=== PATIENT | male | born 1975 | race African-American/Black ===

== ENCOUNTER 2020-10-15 09:25 | Emergency (ER) | payer MEDICARE, MEDICAID ==
[~2020-10-15] VITALS: Ht 182.9 cm; Wt 137.0 kg
[2020-10-15 09:28] VITALS: BP 181/121
== END 2020-10-15 11:32 | disposition left against medical advice (07) ==
LOC: ER 09:25
DX: Z53.21 Procedure and treatment not carried out due to patient leaving prior to being seen by health care provider (principal)

== ENCOUNTER 2021-01-17 15:03 | Emergency (ER) | payer MEDICARE, MEDICAID ==
[~2021-01-17] VITALS: Ht 185.4 cm; Wt 150.0 kg
[2021-01-17 17:22] LABS: BASOPHILS % 0.4 % (0.0-2.0); EOSINOPHILS % 3.2 % (0.0-5.0); HEMATOCRIT. 36.6 % (42.0-52.0); HEMOGLOBIN. 11.7 g/dL (14.0-18.0); LYMPHOCYTES % 20.8 % (20.0-50.0); MEAN CORPUSCULAR HEMOGLOBIN 27.7 pg (28.0-32.0); MEAN CORPUSCULAR VOLUME 86.7 fL (80.0-94.0); MEAN PLATELET VOLUME 10.3 fl (7.4-10.4); MONOCYTES % 8.4 % (2.0-8.0); NEUTROPHILS % 67.2 % (40.0-76.0); PLATELET 89 x1000/uL (130-400); RED BLOOD CELL COUNT 4.22 mill/uL (4.7-6.1); RED CELL DISTRIBUTION WIDTH 15.2 % (11.6-14.6)
[2021-01-17 17:28] LABS: CHLORIDE 112 mEq/L (98-107)
[2021-01-17 17:32] LABS: INR 1.1; PARTIAL THROMBOPLASTIN TIME 23.1 sec (23.4-31.0); PROTHROMBIN TIME 11.4 sec (9.6-11.0)
[2021-01-17 19:30] VITALS: BP 155/108
== END 2021-01-17 19:30 | disposition left against medical advice (07) ==
LOC: ER 15:03 → EDBEDREQ 19:38 → ENRESERV 20:19 → CANRESERV 20:19 → CANBEDREQ 20:24
DX: T82.49XA Other complication of vascular dialysis catheter, initial encounter (principal); E11.22 Type 2 diabetes mellitus with diabetic chronic kidney disease; N18.6 End stage renal disease; F12.10 Cannabis abuse, uncomplicated; Z99.2 Dependence on renal dialysis; Y84.1 Kidney dialysis as the cause of abnormal reaction of the patient, or of later complication, without mention of misadventure at the time of the procedure; Y92.018 Other place in single-family (private) house as the place of occurrence of the external cause
CPT/HCPCS: 36415; 71045; 80053; 85025; 99284

== ENCOUNTER 2022-01-01 12:12 | Inpatient (IN) | payer MEDICARE, MEDICAID ==
[~2022-01-01] VITALS: Ht 182.9 cm; Wt 144.2 kg
[2022-01-01] MEDS ORDERED: FUROSEMIDE 100MG/10ML VIAL IVP ONE ×2 (13:15→14:15)
[2022-01-01 13:29] LABS: BG BASE EXCESS -3.6 mmol/L (-2.0-2.0); BG CARBOXYHEMOGLOBIN 0.7 % (0.5-1.5); BG DEOXYHEMOGLOBIN 6.8 % (0.0-5.0); BG METHEMOGLOBIN 0.3 % (0.0-1.5); BG OXYGEN SATURATION 93.1 % (92.0-98.5); BG OXYHEMOGLOBIN 92.2 % (94.0-97.0); BG PCO2 24.1 mmHg (35.0-45.0); BG PO2 63.5 mmHg (75.0-100.0); BG SAMPLE SITE RIGHT RADIAL; BG TOTAL HEMOGLOBIN 13.4 g/dL (12.0-18.0); BG VENT MODE ROOM AIR
[2022-01-01] MEDS ORDERED: NITROGLYCERIN 0.4MG TABLET SL SL ONE (14:15)
[2022-01-01 14:26] LABS: HEMATOCRIT. 39.1 % (42.0-52.0); HEMOGLOBIN. 12.8 g/dL (14.0-18.0); MEAN CORPUSCULAR HEMOGLOBIN 26.4 pg (28.0-32.0); MEAN CORPUSCULAR VOLUME 80.4 fL (80.0-94.0); RED BLOOD CELL COUNT 4.86 mill/uL (4.7-6.1); RED CELL DISTRIBUTION WIDTH 15.7 % (11.6-14.6)
[2022-01-01 14:36] LABS: CHLORIDE 97 mEq/L (98-107)
[2022-01-01 15:00] LABS: PLATELET ESTIMATE DECREASED
[2022-01-01 15:01] LABS: MEAN PLATELET VOLUME 12.8 fl (7.4-10.4); PLATELET 51 x1000/uL (130-400)
[2022-01-01] MEDS ORDERED: CEFTRIAXONE 1 G PREMIX 50 ML IV ONE (20:30)
[2022-01-01] MEDS ORDERED: NITROGLYCERIN 50MG PREMIX 250 ML IV ONE ×2 (20:30→20:45)
[2022-01-01] MEDS ORDERED: LORAZEPAM 2MG/ML CPJ IV ONE (21:45)
[2022-01-01 23:10] LABS: BG BASE EXCESS -5.6 mmol/L (-2.0-2.0); BG CARBOXYHEMOGLOBIN 0.4 % (0.5-1.5); BG DEOXYHEMOGLOBIN 0.9 % (0.0-5.0); BG FRACTION INSPIRED OXYGEN 50; BG HCO3 ACT 18.1 mmol/L (22.0-26.0); BG METHEMOGLOBIN 0.3 % (0.0-1.5); BG OXYGEN SATURATION 99.1 % (92.0-98.5); BG OXYHEMOGLOBIN 98.4 % (94.0-97.0); BG PCO2 30.2 mmHg (35.0-45.0); BG PH 7.395 (7.350-7.450); BG SAMPLE SITE LEFT RADIAL; BG TOTAL HEMOGLOBIN 13.5 g/dL (12.0-18.0); BG VENT MODE MASK - BIPAP
[2022-01-02] VITALS (80 sets, daily range): BP systolic 87–170; BP diastolic 45–123
[2022-01-02] MEDS ORDERED: MORPHINE SULFATE 2 MG/ML CPJ (NOT FOR IM USE) IV PRN (05:00)
[2022-01-02] MEDS ORDERED: IPRATROPIUM/ALBUTEROL 0.5-3(2.5)MG/3ML NEB HHN PRN (05:00)
[2022-01-02] MEDS ORDERED: CLONIDINE 0.1MG TABLET PO PRN (05:00)
[2022-01-02] MEDS ORDERED: NITROGLYCERIN 50MG PREMIX 250 ML IV PRN (05:15)
[2022-01-02] MEDS ORDERED: NALOXONE HCL 0.4 MG/ML 1ML VIAL IV PRN (05:45)
[2022-01-02] MEDS ORDERED: DEXTROSE 50% WATER 50ML SYRINGE IV PRN (05:45)
[2022-01-02] MEDS ORDERED: HEPARIN 5000 UNITS/ML VIAL SUBCUT SCH (06:00)
[2022-01-02] MEDS: ACETAMINOPHEN 325MG TABLET PO PRN (06:02)
[2022-01-02 06:53] LABS: HEMATOCRIT. 38.7 % (42.0-52.0); HEMOGLOBIN. 12.7 g/dL (14.0-18.0); MEAN CORPUSCULAR HEMOGLOBIN 26.6 pg (28.0-32.0); MEAN CORPUSCULAR VOLUME 80.9 fL (80.0-94.0); RED BLOOD CELL COUNT 4.78 mill/uL (4.7-6.1); RED CELL DISTRIBUTION WIDTH 16.6 % (11.6-14.6)
[2022-01-02 07:03] LABS: INR 1.1; PARTIAL THROMBOPLASTIN TIME 32.4 sec (23.4-31.0); PROTHROMBIN TIME 11.5 sec (9.6-11.0)
[2022-01-02 07:04] LABS: PHOSPHORUS 4.4 mg/dL (2.5-4.9)
[2022-01-02 07:04] LABS: CREATINE KINASE MB FRACTION 4.9 ng/mL (0.5-3.6)
[2022-01-02 07:29] LABS: MEAN PLATELET VOLUME 16.1 fl (7.4-10.4); PLATELET 49 x1000/uL (130-400)
[2022-01-02 07:39] LABS: PLATELET ESTIMATE MARKEDLY DECREASED
[2022-01-02] MEDS ORDERED: ALTEPLASE 2MG/VIAL ITC NR (07:39)
[2022-01-02] MEDS ORDERED: VANCOMYCIN 1500MG in DEXTROSE 5% WATER 250ML IV SCH (08:00)
[2022-01-02] MEDS: INSULIN LISPRO 100 UNITS/ML SUBCUT SCH ×4 (08:20→21:00)
[2022-01-02] MEDS: BLOOD SUGAR DIAGNOSTIC STRIP TEST SCH ×4 (08:22→21:00)
[2022-01-02] MEDS: PIPERACILLIN/TAZOBACTAM 3.375 G in DEXTROSE 5% WATER 50 ML IV SCH ×2 (08:30→22:23)
[2022-01-02] MEDS ORDERED: LIDOCAINE HCL/PF 1% 10 MG/ML 5ML VIAL ONE (08:49)
[2022-01-02] MEDS ORDERED: HEPARIN 1000 UNITS/ML 10ML ONE (09:02)
[2022-01-02 09:55] LABS: BG BASE EXCESS -4.7 mmol/L (-2.0-2.0); BG CARBOXYHEMOGLOBIN 0.3 % (0.5-1.5); BG DEOXYHEMOGLOBIN 0.9 % (0.0-5.0); BG FRACTION INSPIRED OXYGEN 50; BG HCO3 ACT 19.9 mmol/L (22.0-26.0); BG METHEMOGLOBIN 0.1 % (0.0-1.5); BG OXYGEN SATURATION 99.1 % (92.0-98.5); BG OXYHEMOGLOBIN 98.7 % (94.0-97.0); BG PCO2 35.5 mmHg (35.0-45.0); BG PH 7.367 (7.350-7.450); BG PO2 181.2 mmHg (75.0-100.0); BG SAMPLE SITE LEFT RADIAL; BG TOTAL HEMOGLOBIN 12.5 g/dL (12.0-18.0); BG TOTAL RESPIRATORY RATE 30 b/min; BG VENT MODE MASK - BIPAP
[2022-01-02] MEDS ORDERED: HYDROCODONE/ACETAMINOPHEN 5/325MG TABLET PO PRN (11:30)
[2022-01-02] MEDS ORDERED: MAGNESIUM/ALUMINUM HYDROXIDE/SIMETHICONE 30ML UDC PO PRN (11:30)
[2022-01-02] MEDS ORDERED: ONDANSETRON HCL 4MG/2ML INJ IV PRN (11:30)
[2022-01-02] MEDS ORDERED: DOCUSATE SODIUM 100MG CAPSULE PO PRN (11:30)
[2022-01-02] MEDS ORDERED: PIPERACILLIN/TAZOBACTAM 3.375 G in DEXTROSE 5% WATER 50 ML IV SCH (11:30)
[2022-01-02 13:08] LABS: HEPATITIS B SURFACE ANTIGEN NEGATIVE
[2022-01-02 13:19] LABS: CREATINE KINASE 310 IU/L (39-308)
[2022-01-02 16:05] LABS: CREATINE KINASE MB FRACTION 3.8 ng/mL (0.5-3.6)
[2022-01-02] MEDS ORDERED: VANCOMYCIN 500MG PREMIX 100 ML IV NR (21:00)
[2022-01-02] MEDS: ATORVASTATIN CALCIUM 40MG TABLET PO SCH (22:22)
[2022-01-02] MEDS: CARVEDILOL 6.25 MG TABLET PO SCH (22:23)
[2022-01-03] VITALS (84 sets, daily range): BP systolic 80–166; BP diastolic 31–114
[2022-01-03 00:20] LABS: CREATINE KINASE MB FRACTION 3.6 ng/mL (0.5-3.6)
[2022-01-03 07:00] LABS: BASOPHILS % 0.2 % (0.0-2.0); EOSINOPHILS % 0.1 % (0.0-5.0); HEMATOCRIT. 36.2 % (42.0-52.0); MEAN CORPUSCULAR HEMOGLOBIN 26.7 pg (28.0-32.0); MEAN CORPUSCULAR VOLUME 80.7 fL (80.0-94.0); MEAN PLATELET VOLUME 11.6 fl (7.4-10.4); NEUTROPHILS % 79.7 % (40.0-76.0); RED BLOOD CELL COUNT 4.48 mill/uL (4.7-6.1); RED CELL DISTRIBUTION WIDTH 16.1 % (11.6-14.6)
[2022-01-03 07:18] LABS: PLATELET 26 x1000/uL (130-400)
[2022-01-03 07:24] LABS: PHOSPHORUS 4.7 mg/dL (2.5-4.9); T4 FREE 1.56 ng/dL (0.76-1.46)
[2022-01-03 07:39] LABS: CREATINE KINASE MB FRACTION 3.2 ng/mL (0.5-3.6)
[2022-01-03] MEDS: BLOOD SUGAR DIAGNOSTIC STRIP TEST SCH ×4 (07:50→21:00)
[2022-01-03] MEDS: INSULIN LISPRO 100 UNITS/ML SUBCUT SCH ×4 (08:20→21:00)
[2022-01-03] MEDS: LOSARTAN POTASSIUM 25 MG TABLET PO SCH (09:03)
[2022-01-03] MEDS: PANTOPRAZOLE SODIUM 40 MG/VIAL IV SCH (09:03)
[2022-01-03] MEDS: CARVEDILOL 6.25 MG TABLET PO SCH ×2 (09:03→21:47)
[2022-01-03 09:28] LABS: BG BASE EXCESS -2.3 mmol/L (-2.0-2.0); BG CARBOXYHEMOGLOBIN 1.1 % (0.5-1.5); BG DEOXYHEMOGLOBIN 2.2 % (0.0-5.0); BG FRACTION INSPIRED OXYGEN 32; BG HCO3 ACT 22.5 mmol/L (22.0-26.0); BG METHEMOGLOBIN 0.1 % (0.0-1.5); BG OXYGEN SATURATION 97.8 % (92.0-98.5); BG OXYHEMOGLOBIN 96.6 % (94.0-97.0); BG PCO2 38.8 mmHg (35.0-45.0); BG PH 7.381 (7.350-7.450); BG PO2 103.9 mmHg (75.0-100.0); BG SAMPLE SITE RIGHT RADIAL; BG TOTAL HEMOGLOBIN 13.6 g/dL (12.0-18.0); BG VENT MODE NASAL CANNULA
[2022-01-03] MEDS: PIPERACILLIN/TAZOBACTAM 3.375 G in DEXTROSE 5% WATER 50 ML IV SCH ×2 (11:10→21:48)
[2022-01-03 16:04] LABS: CLARITY URINE CLEAR (CLEAR); COLOR URINE YELLOW (YELLOW); KETONES URINE NEGATIVE (NEGATIVE); LEUKOCYTE ESTERASE URINE NEGATIVE (NEGATIVE); NITRITE URINE NEGATIVE (NEGATIVE); OCCULT BLOOD URINE NEGATIVE (NEGATIVE); PH URINE >=9.0 (4.5-8.0); PROTEIN URINE NEGATIVE (NEGATIVE); SPECIFIC GRAVITY URINE 1.006 (1.005-1.030); UROBILINOGEN URINE 0.2 E.U./dL (0.2-1.0)
[2022-01-03 16:22] LABS: *BARBITURATES SCREEN URINE NEGATIVE (NEGATIVE); *BENZODIAZEPINES SCREEN URINE NEGATIVE (NEGATIVE); *COCAINE SCREEN URINE NEGATIVE (NEGATIVE); METHADONE URINE SCREEN NEGATIVE (NEGATIVE); OPIATES URINE SCREEN NEGATIVE (NEGATIVE); PHENCYCLIDINE URINE SCREEN NEGATIVE (NEGATIVE)
[2022-01-03 16:23] LABS: *AMPHETAMINES SCREEN URINE NEGATIVE (NEGATIVE); CANNABINOID URINE SCREEN NEGATIVE (NEGATIVE)
[2022-01-03 16:53] LABS: CREATINE KINASE MB FRACTION 2.9 ng/mL (0.5-3.6)
[2022-01-03] MEDS: ATORVASTATIN CALCIUM 40MG TABLET PO SCH (21:48)
[2022-01-04] VITALS (62 sets, daily range): BP systolic 81–151; BP diastolic 44–91
[2022-01-04 06:27] LABS: BASOPHILS % 0.5 % (0.0-2.0); EOSINOPHILS % 0.2 % (0.0-5.0); HEMATOCRIT. 35.3 % (42.0-52.0); HEMOGLOBIN. 11.5 g/dL (14.0-18.0); LYMPHOCYTES % 17.5 % (20.0-50.0); MEAN CORPUSCULAR HEMOGLOBIN 26.5 pg (28.0-32.0); MEAN CORPUSCULAR VOLUME 81.3 fL (80.0-94.0); MONOCYTES % 12.1 % (2.0-8.0); NEUTROPHILS % 69.7 % (40.0-76.0); RED BLOOD CELL COUNT 4.34 mill/uL (4.7-6.1); RED CELL DISTRIBUTION WIDTH 16.1 % (11.6-14.6)
[2022-01-04 07:27] LABS: PLATELET 53 x1000/uL (130-400)
[2022-01-04] MEDS: BLOOD SUGAR DIAGNOSTIC STRIP TEST SCH ×4 (07:50→21:21)
[2022-01-04] MEDS: INSULIN LISPRO 100 UNITS/ML SUBCUT SCH ×4 (08:20→21:00)
[2022-01-04] MEDS: PANTOPRAZOLE SODIUM 40 MG/VIAL IV SCH (09:04)
[2022-01-04] MEDS: CARVEDILOL 6.25 MG TABLET PO SCH (09:04)
[2022-01-04] MEDS: PIPERACILLIN/TAZOBACTAM 3.375 G in DEXTROSE 5% WATER 50 ML IV SCH (09:04)
[2022-01-04] MEDS: LOSARTAN POTASSIUM 25 MG TABLET PO SCH (09:04)
[2022-01-04] MEDS ORDERED: LIDOCAINE HCL/PF 1% 10 MG/ML 5ML VIAL ONE (10:11)
[2022-01-04] MEDS ORDERED: VANCOMYCIN 1G PREMIX 200 ML IV NR (15:00)
[2022-01-04] MEDS: ATORVASTATIN CALCIUM 40MG TABLET PO SCH (21:17)
[2022-01-04] MEDS: METRONIDAZOLE 500MG TABLET PO SCH (21:17)
[2022-01-04] MEDS: CARVEDILOL 12.5MG TABLET PO SCH (21:17)
[2022-01-04] MEDS: ACETAMINOPHEN 325MG TABLET PO PRN ×3 (21:18→23:22)
[2022-01-04] MEDS: CEFEPIME 1,000 MG in DEXTROSE 5% WATER 50 ML IV SCH (21:19)
[2022-01-05 05:12] VITALS: BP 128/92
[2022-01-05] MEDS: BLOOD SUGAR DIAGNOSTIC STRIP TEST SCH ×4 (06:00→21:10)
[2022-01-05] MEDS: INSULIN LISPRO 100 UNITS/ML SUBCUT SCH ×4 (06:23→21:00)
[2022-01-05] MEDS: METRONIDAZOLE 500MG TABLET PO SCH ×3 (06:24→22:28)
[2022-01-05 08:00] VITALS: BP 135/70
[2022-01-05 09:25] LABS: PHOSPHORUS 3.6 mg/dL (2.5-4.9)
[2022-01-05] MEDS: PANTOPRAZOLE SODIUM 40 MG/VIAL IV SCH (09:51)
[2022-01-05 12:00] VITALS: BP 154/97
[2022-01-05] MEDS: CARVEDILOL 12.5MG TABLET PO SCH ×2 (13:12→22:29)
[2022-01-05 20:00] VITALS: BP 126/86
[2022-01-05] MEDS: ATORVASTATIN CALCIUM 40MG TABLET PO SCH (22:25)
[2022-01-05] MEDS: LOSARTAN POTASSIUM 50 MG TABLET PO SCH (22:25)
[2022-01-05] MEDS: CEFEPIME 1,000 MG in DEXTROSE 5% WATER 50 ML IV SCH (22:55)
[2022-01-06] VITALS: BP 117/63
[2022-01-06 04:00] VITALS: BP 124/74
[2022-01-06] MEDS: INSULIN LISPRO 100 UNITS/ML SUBCUT SCH ×4 (05:37→21:00)
[2022-01-06] MEDS: BLOOD SUGAR DIAGNOSTIC STRIP TEST SCH ×4 (05:37→20:50)
[2022-01-06] MEDS: METRONIDAZOLE 500MG TABLET PO SCH ×3 (05:42→20:54)
[2022-01-06 08:00] VITALS: BP 118/84
[2022-01-06] MEDS: PANTOPRAZOLE SODIUM 40 MG/VIAL IV SCH (11:20)
[2022-01-06] MEDS: CARVEDILOL 12.5MG TABLET PO SCH ×2 (11:20→20:50)
[2022-01-06] MEDS: LOSARTAN POTASSIUM 50 MG TABLET PO SCH ×2 (11:20→20:50)
[2022-01-06 12:00] VITALS: BP 127/79
[2022-01-06 16:00] VITALS: BP 132/88
[2022-01-06 16:14] LABS: BASOPHILS % 0.4 % (0.0-2.0); EOSINOPHILS % 1.2 % (0.0-5.0); HEMATOCRIT. 32.8 % (42.0-52.0); HEMOGLOBIN. 10.7 g/dL (14.0-18.0); LYMPHOCYTES % 10.3 % (20.0-50.0); MEAN CORPUSCULAR HEMOGLOBIN 26.2 pg (28.0-32.0); MEAN CORPUSCULAR VOLUME 80.6 fL (80.0-94.0); MONOCYTES % 9.8 % (2.0-8.0); NEUTROPHILS % 78.3 % (40.0-76.0); PLATELET 89 x1000/uL (130-400); RED BLOOD CELL COUNT 4.07 mill/uL (4.7-6.1); RED CELL DISTRIBUTION WIDTH 16.2 % (11.6-14.6)
[2022-01-06] MEDS: CHLORPROMAZINE HCL 10 MG TABLET PO SCH ×2 (18:12→20:55)
[2022-01-06 20:00] VITALS: BP 109/76
[2022-01-06] MEDS: ACETAMINOPHEN 325MG TABLET PO PRN (20:54)
[2022-01-06] MEDS: ATORVASTATIN CALCIUM 40MG TABLET PO SCH (20:54)
[2022-01-06] MEDS: CEFEPIME 1,000 MG in DEXTROSE 5% WATER 50 ML IV SCH (20:55)
[2022-01-07] VITALS: BP 108/65
[2022-01-07 04:00] VITALS: BP 128/96
[2022-01-07] MEDS: CHLORPROMAZINE HCL 10 MG TABLET PO SCH ×3 (05:16→21:07)
[2022-01-07] MEDS: METRONIDAZOLE 500MG TABLET PO SCH ×3 (05:17→21:07)
[2022-01-07] MEDS: INSULIN LISPRO 100 UNITS/ML SUBCUT SCH ×4 (05:57→20:12)
[2022-01-07] MEDS: BLOOD SUGAR DIAGNOSTIC STRIP TEST SCH ×4 (05:57→20:12)
[2022-01-07 07:24] LABS: BASOPHILS % 0.3 % (0.0-2.0); EOSINOPHILS % 1.8 % (0.0-5.0); HEMATOCRIT. 31.1 % (42.0-52.0); HEMOGLOBIN. 10.2 g/dL (14.0-18.0); LYMPHOCYTES % 11.3 % (20.0-50.0); MEAN CORPUSCULAR HEMOGLOBIN 26.4 pg (28.0-32.0); MEAN CORPUSCULAR VOLUME 80.6 fL (80.0-94.0); MONOCYTES % 8.7 % (2.0-8.0); NEUTROPHILS % 77.9 % (40.0-76.0); PLATELET 102 x1000/uL (130-400); RED BLOOD CELL COUNT 3.86 mill/uL (4.7-6.1); RED CELL DISTRIBUTION WIDTH 16.4 % (11.6-14.6)
[2022-01-07 07:31] LABS: PHOSPHORUS 7.1 mg/dL (2.5-4.9)
[2022-01-07 08:00] VITALS: BP 133/85
[2022-01-07] MEDS ORDERED: NALOXONE HCL 0.4MG/ML VIAL IV PRN (10:00)
[2022-01-07] MEDS: FOLIC ACID/VITAMIN B COMP W-C TABLET PO SCH (10:19)
[2022-01-07] MEDS: LOSARTAN POTASSIUM 50 MG TABLET PO SCH ×2 (10:20→20:28)
[2022-01-07] MEDS: PANTOPRAZOLE SODIUM 40 MG/VIAL IV SCH (10:20)
[2022-01-07] MEDS: CARVEDILOL 12.5MG TABLET PO SCH ×2 (10:20→20:28)
[2022-01-07 12:00] VITALS: BP 111/64
[2022-01-07] MEDS: CALCIUM ACETATE 667MG CAPSULE PO SCH ×2 (12:00→17:06)
[2022-01-07] MEDS: RISPERIDONE 0.5MG TABLET PO SCH ×2 (12:00→20:28)
[2022-01-07] MEDS: ACETAMINOPHEN 325MG TABLET PO PRN (12:10)
[2022-01-07 16:00] VITALS: BP 124/68
[2022-01-07 20:00] VITALS: BP 126/78
[2022-01-07] MEDS: ATORVASTATIN CALCIUM 40MG TABLET PO SCH (20:28)
[2022-01-07] MEDS: CEFEPIME 1,000 MG in DEXTROSE 5% WATER 50 ML IV SCH (20:28)
[2022-01-08] VITALS: BP 117/69
[2022-01-08] MEDS: ACETAMINOPHEN 325MG TABLET PO PRN ×2 (00:40→14:28)
[2022-01-08 04:00] VITALS: BP 119/76
[2022-01-08] MEDS: INSULIN LISPRO 100 UNITS/ML SUBCUT SCH ×4 (06:13→20:45)
[2022-01-08] MEDS: BLOOD SUGAR DIAGNOSTIC STRIP TEST SCH ×4 (06:13→20:45)
[2022-01-08] MEDS: CALCIUM ACETATE 667MG CAPSULE PO SCH ×3 (06:32→17:40)
[2022-01-08] MEDS: METRONIDAZOLE 500MG TABLET PO SCH ×3 (06:32→21:24)
[2022-01-08] MEDS: CHLORPROMAZINE HCL 10 MG TABLET PO SCH ×3 (06:32→21:26)
[2022-01-08 07:35] LABS: BASOPHILS % 0.2 % (0.0-2.0); EOSINOPHILS % 1.2 % (0.0-5.0); HEMATOCRIT. 29.2 % (42.0-52.0); HEMOGLOBIN. 9.5 g/dL (14.0-18.0); LYMPHOCYTES % 12.3 % (20.0-50.0); MEAN CORPUSCULAR HEMOGLOBIN 26.1 pg (28.0-32.0); MEAN CORPUSCULAR VOLUME 80.5 fL (80.0-94.0); MEAN PLATELET VOLUME 11.3 fl (7.4-10.4); MONOCYTES % 9.3 % (2.0-8.0); PLATELET 117 x1000/uL (130-400); RED BLOOD CELL COUNT 3.63 mill/uL (4.7-6.1); RED CELL DISTRIBUTION WIDTH 16.1 % (11.6-14.6)
[2022-01-08 08:00] VITALS: BP 117/69
[2022-01-08] MEDS: PANTOPRAZOLE SODIUM 40 MG/VIAL IV SCH (08:09)
[2022-01-08] MEDS: LOSARTAN POTASSIUM 50 MG TABLET PO SCH ×2 (08:09→20:44)
[2022-01-08] MEDS: CARVEDILOL 12.5MG TABLET PO SCH ×2 (08:09→20:45)
[2022-01-08] MEDS: FOLIC ACID/VITAMIN B COMP W-C TABLET PO SCH (08:09)
[2022-01-08] MEDS: RISPERIDONE 0.5MG TABLET PO SCH ×2 (08:09→20:44)
[2022-01-08 12:00] VITALS: BP 141/83
[2022-01-08 16:00] VITALS: BP 138/82
[2022-01-08 20:00] VITALS: BP 144/89
[2022-01-08] MEDS: CEFEPIME 1,000 MG in DEXTROSE 5% WATER 50 ML IV SCH (20:44)
[2022-01-08] MEDS: ATORVASTATIN CALCIUM 40MG TABLET PO SCH (20:44)
[2022-01-09] VITALS: BP 132/81
[2022-01-09 04:00] VITALS: BP 130/77
[2022-01-09] MEDS: CHLORPROMAZINE HCL 10 MG TABLET PO SCH ×3 (05:47→21:51)
[2022-01-09] MEDS: METRONIDAZOLE 500MG TABLET PO SCH ×2 (05:47→16:28)
[2022-01-09] MEDS: BLOOD SUGAR DIAGNOSTIC STRIP TEST SCH ×4 (06:20→21:51)
[2022-01-09] MEDS: INSULIN LISPRO 100 UNITS/ML SUBCUT SCH ×4 (06:21→21:00)
[2022-01-09 08:00] VITALS: BP 138/75
[2022-01-09 08:30] LABS: BASOPHILS % 0.3 % (0.0-2.0); EOSINOPHILS % 1.9 % (0.0-5.0); HEMATOCRIT. 28.1 % (42.0-52.0); HEMOGLOBIN. 9.4 g/dL (14.0-18.0); LYMPHOCYTES % 10.3 % (20.0-50.0); MEAN CORPUSCULAR HEMOGLOBIN 26.8 pg (28.0-32.0); MEAN CORPUSCULAR VOLUME 80.5 fL (80.0-94.0); MEAN PLATELET VOLUME 11.3 fl (7.4-10.4); NEUTROPHILS % 78.5 % (40.0-76.0); PLATELET 132 x1000/uL (130-400); RED BLOOD CELL COUNT 3.49 mill/uL (4.7-6.1); RED CELL DISTRIBUTION WIDTH 16.1 % (11.6-14.6)
[2022-01-09 12:00] VITALS: BP 131/71
[2022-01-09] MEDS: FOLIC ACID/VITAMIN B COMP W-C TABLET PO SCH (12:22)
[2022-01-09] MEDS: LOSARTAN POTASSIUM 50 MG TABLET PO SCH ×2 (12:22→21:51)
[2022-01-09] MEDS: PANTOPRAZOLE SODIUM 40 MG/VIAL IV SCH (12:22)
[2022-01-09] MEDS: RISPERIDONE 0.5MG TABLET PO SCH ×2 (12:29→21:50)
[2022-01-09] MEDS: CARVEDILOL 12.5MG TABLET PO SCH ×2 (12:29→21:51)
[2022-01-09] MEDS: CEFAZOLIN 1000MG PREMIX 50 ML IV SCH (12:37)
[2022-01-09] MEDS: CALCIUM ACETATE 667MG CAPSULE PO SCH ×3 (12:37→18:02)
[2022-01-09 16:00] VITALS: BP 140/72
[2022-01-09 20:00] VITALS: BP 132/72
[2022-01-09] MEDS: ATORVASTATIN CALCIUM 40MG TABLET PO SCH (21:50)
[2022-01-10] VITALS: BP 134/78
[2022-01-10 04:00] VITALS: BP 173/73
[2022-01-10] MEDS: CHLORPROMAZINE HCL 10 MG TABLET PO SCH ×3 (05:56→21:14)
[2022-01-10] MEDS: BLOOD SUGAR DIAGNOSTIC STRIP TEST SCH ×2 (05:59→13:01)
[2022-01-10] MEDS: INSULIN LISPRO 100 UNITS/ML SUBCUT SCH ×2 (05:59→12:40)
[2022-01-10 08:00] VITALS: BP 132/80
[2022-01-10] MEDS: PANTOPRAZOLE SODIUM 40 MG/VIAL IV SCH (09:07)
[2022-01-10] MEDS: CALCIUM ACETATE 667MG CAPSULE PO SCH ×3 (09:07→18:13)
[2022-01-10] MEDS: RISPERIDONE 0.5MG TABLET PO SCH ×2 (09:07→21:14)
[2022-01-10] MEDS: CEFAZOLIN 1000MG PREMIX 50 ML IV SCH (09:07)
[2022-01-10] MEDS: CARVEDILOL 12.5MG TABLET PO SCH ×2 (09:08→21:14)
[2022-01-10] MEDS: LOSARTAN POTASSIUM 50 MG TABLET PO SCH ×2 (09:08→21:14)
[2022-01-10] MEDS: FOLIC ACID/VITAMIN B COMP W-C TABLET PO SCH (09:08)
[2022-01-10 10:31] LABS: BASOPHILS % 0.3 % (0.0-2.0); EOSINOPHILS % 1.5 % (0.0-5.0); HEMOGLOBIN. 9.6 g/dL (14.0-18.0); LYMPHOCYTES % 13.7 % (20.0-50.0); MEAN CORPUSCULAR HEMOGLOBIN 26.5 pg (28.0-32.0); MEAN CORPUSCULAR VOLUME 80.1 fL (80.0-94.0); MEAN PLATELET VOLUME 10.4 fl (7.4-10.4); MONOCYTES % 12.8 % (2.0-8.0); NEUTROPHILS % 71.7 % (40.0-76.0); PLATELET 139 x1000/uL (130-400); RED BLOOD CELL COUNT 3.62 mill/uL (4.7-6.1)
[2022-01-10 12:00] VITALS: BP 133/73
[2022-01-10 16:00] VITALS: BP 150/62
[2022-01-10 20:00] VITALS: BP 161/85
[2022-01-10] MEDS: ATORVASTATIN CALCIUM 40MG TABLET PO SCH (21:14)
[2022-01-11] VITALS: BP 128/84
[2022-01-11 04:00] VITALS: BP 156/98
[2022-01-11] MEDS: CHLORPROMAZINE HCL 10 MG TABLET PO SCH ×3 (05:53→21:19)
[2022-01-11 07:20] LABS: BASOPHILS % 0.4 % (0.0-2.0); EOSINOPHILS % 1.3 % (0.0-5.0); HEMATOCRIT. 29.7 % (42.0-52.0); HEMOGLOBIN. 9.8 g/dL (14.0-18.0); LYMPHOCYTES % 13.2 % (20.0-50.0); MEAN CORPUSCULAR HEMOGLOBIN 26.7 pg (28.0-32.0); MEAN CORPUSCULAR VOLUME 80.5 fL (80.0-94.0); MEAN PLATELET VOLUME 11.3 fl (7.4-10.4); MONOCYTES % 12.2 % (2.0-8.0); NEUTROPHILS % 72.9 % (40.0-76.0); PLATELET 153 x1000/uL (130-400); RED BLOOD CELL COUNT 3.69 mill/uL (4.7-6.1); RED CELL DISTRIBUTION WIDTH 16.1 % (11.6-14.6)
[2022-01-11 08:00] VITALS: BP 131/90
[2022-01-11 08:54] LABS: PHOSPHORUS 8.1 mg/dL (2.5-4.9)
[2022-01-11] MEDS: LOSARTAN POTASSIUM 50 MG TABLET PO SCH ×2 (09:00→21:19)
[2022-01-11] MEDS: CARVEDILOL 12.5MG TABLET PO SCH ×2 (09:00→21:19)
[2022-01-11] MEDS: FOLIC ACID/VITAMIN B COMP W-C TABLET PO SCH (09:02)
[2022-01-11] MEDS: RISPERIDONE 0.5MG TABLET PO SCH ×2 (09:02→21:19)
[2022-01-11] MEDS: PANTOPRAZOLE SODIUM 40 MG/VIAL IV SCH (09:03)
[2022-01-11] MEDS: CEFAZOLIN 1000MG PREMIX 50 ML IV SCH (09:03)
[2022-01-11] MEDS: CALCIUM ACETATE 667MG CAPSULE PO SCH ×3 (09:07→17:11)
[2022-01-11 12:00] VITALS: BP 128/76
[2022-01-11] MEDS: ASPIRIN 81MG EC TABLET PO SCH (14:44)
[2022-01-11 16:00] VITALS: BP 193/90
[2022-01-11 16:00] LABS: INR 1.2; PROTHROMBIN TIME 12.9 sec (9.6-11.0)
[2022-01-11] MEDS ORDERED: HEPARIN SODIUM 1,000 UNIT/1ML VIAL IV NR (17:45)
[2022-01-11 20:00] VITALS: BP 148/89
[2022-01-11] MEDS: ATORVASTATIN CALCIUM 40MG TABLET PO SCH (21:19)
[2022-01-12] VITALS: BP 131/95
[2022-01-12 04:00] VITALS: BP 145/96
[2022-01-12] MEDS: CHLORPROMAZINE HCL 10 MG TABLET PO SCH ×3 (05:10→21:02)
[2022-01-12 05:38] LABS: BASOPHILS % 0.3 % (0.0-2.0); EOSINOPHILS % 1.5 % (0.0-5.0); LYMPHOCYTES % 12.9 % (20.0-50.0); MEAN CORPUSCULAR HEMOGLOBIN 26.6 pg (28.0-32.0); MEAN CORPUSCULAR VOLUME 80.1 fL (80.0-94.0); MEAN PLATELET VOLUME 11.3 fl (7.4-10.4); MONOCYTES % 13.4 % (2.0-8.0); NEUTROPHILS % 71.9 % (40.0-76.0); PLATELET 155 x1000/uL (130-400); RED BLOOD CELL COUNT 3.38 mill/uL (4.7-6.1); RED CELL DISTRIBUTION WIDTH 16.4 % (11.6-14.6)
[2022-01-12 08:00] VITALS: BP 138/80
[2022-01-12] MEDS: CALCIUM ACETATE 667MG CAPSULE PO SCH ×3 (08:47→17:00)
[2022-01-12] MEDS: CEFAZOLIN 1000MG PREMIX 50 ML IV SCH (08:48)
[2022-01-12] MEDS: FOLIC ACID/VITAMIN B COMP W-C TABLET PO SCH (08:48)
[2022-01-12] MEDS: CARVEDILOL 12.5MG TABLET PO SCH ×2 (08:48→21:02)
[2022-01-12] MEDS: ASPIRIN 81MG EC TABLET PO SCH (08:48)
[2022-01-12] MEDS: PANTOPRAZOLE SODIUM 40 MG/VIAL IV SCH (08:48)
[2022-01-12] MEDS: LOSARTAN POTASSIUM 50 MG TABLET PO SCH ×2 (08:48→21:02)
[2022-01-12] MEDS: RISPERIDONE 0.5MG TABLET PO SCH ×2 (08:50→21:02)
[2022-01-12 12:00] VITALS: BP 112/79
[2022-01-12 16:00] VITALS: BP 135/85
[2022-01-12 20:00] VITALS: BP 146/70
[2022-01-12] MEDS: ATORVASTATIN CALCIUM 40MG TABLET PO SCH (21:02)
[2022-01-13] VITALS: BP 149/80
[2022-01-13 04:00] VITALS: BP 140/66
[2022-01-13] MEDS: CHLORPROMAZINE HCL 10 MG TABLET PO SCH ×3 (06:47→21:12)
[2022-01-13] MEDS: CALCIUM ACETATE 667MG CAPSULE PO SCH ×3 (06:47→18:37)
[2022-01-13 07:12] LABS: BASOPHILS % 0.4 % (0.0-2.0); HEMATOCRIT. 25.9 % (42.0-52.0); HEMOGLOBIN. 8.6 g/dL (14.0-18.0); LYMPHOCYTES % 15.6 % (20.0-50.0); MEAN CORPUSCULAR HEMOGLOBIN 26.8 pg (28.0-32.0); MEAN CORPUSCULAR VOLUME 80.8 fL (80.0-94.0); MEAN PLATELET VOLUME 11.1 fl (7.4-10.4); PLATELET 147 x1000/uL (130-400); RED CELL DISTRIBUTION WIDTH 16.1 % (11.6-14.6)
[2022-01-13 08:00] VITALS: BP 131/89
[2022-01-13] MEDS: CEFAZOLIN 1000MG PREMIX 50 ML IV SCH (09:56)
[2022-01-13] MEDS: LOSARTAN POTASSIUM 50 MG TABLET PO SCH ×2 (09:56→21:12)
[2022-01-13] MEDS: CARVEDILOL 12.5MG TABLET PO SCH ×2 (09:57→21:12)
[2022-01-13] MEDS: FOLIC ACID/VITAMIN B COMP W-C TABLET PO SCH (09:57)
[2022-01-13] MEDS: RISPERIDONE 0.5MG TABLET PO SCH ×2 (09:57→21:12)
[2022-01-13] MEDS: PANTOPRAZOLE SODIUM 40 MG/VIAL IV SCH (09:57)
[2022-01-13 12:00] VITALS: BP 132/76
[2022-01-13 16:16] VITALS: BP 128/74
[2022-01-13 20:00] VITALS: BP 142/98
[2022-01-13] MEDS: ATORVASTATIN CALCIUM 40MG TABLET PO SCH (21:12)
[2022-01-14] VITALS: BP 123/88
[2022-01-14 04:00] VITALS: BP 126/77
[2022-01-14] MEDS: CALCIUM ACETATE 667MG CAPSULE PO SCH ×3 (06:40→20:44)
[2022-01-14] MEDS: CHLORPROMAZINE HCL 10 MG TABLET PO SCH ×2 (06:40→13:22)
[2022-01-14 08:00] VITALS: BP 129/94
[2022-01-14] MEDS: RISPERIDONE 0.5MG TABLET PO SCH ×2 (08:54→20:44)
[2022-01-14] MEDS: FOLIC ACID/VITAMIN B COMP W-C TABLET PO SCH (08:54)
[2022-01-14] MEDS: LOSARTAN POTASSIUM 50 MG TABLET PO SCH ×2 (08:54→20:44)
[2022-01-14] MEDS: CARVEDILOL 12.5MG TABLET PO SCH ×2 (08:54→20:37)
[2022-01-14] MEDS: PANTOPRAZOLE SODIUM 40 MG/VIAL IV SCH (08:55)
[2022-01-14] MEDS: CEFAZOLIN 1000MG PREMIX 50 ML IV SCH (08:58)
[2022-01-14 12:00] VITALS: BP 119/85
[2022-01-14 16:00] VITALS: BP 131/90
[2022-01-14 16:55] LABS: INR 1.2; PROTHROMBIN TIME 12.4 sec (9.6-11.0)
[2022-01-14 20:00] VITALS: BP 142/97
[2022-01-14] MEDS: ATORVASTATIN CALCIUM 40MG TABLET PO SCH (20:44)
[2022-01-15] VITALS (22 sets, daily range): BP systolic 98–149; BP diastolic 32–96
[2022-01-15] MEDS: CALCIUM ACETATE 667MG CAPSULE PO SCH ×3 (06:42→17:40)
[2022-01-15] MEDS ORDERED: HEPARIN SODIUM,PORCINE/PF 500 UNIT/5 ML SYRINGE ONE (07:40)
[2022-01-15] MEDS ORDERED: FENTANYL CITRATE/PF 50MCG/ML 2ML VIAL ONE ×2 (07:40→08:44)
[2022-01-15] MEDS ORDERED: LIDOCAINE HCL 1% 20ML VIAL (Pyxis) INJ ONE ×2 (07:41→08:36)
[2022-01-15 07:54] LABS: BASOPHILS % 0.7 % (0.0-2.0); EOSINOPHILS % 2.4 % (0.0-5.0); HEMATOCRIT. 25.8 % (42.0-52.0); HEMOGLOBIN. 8.3 g/dL (14.0-18.0); LYMPHOCYTES % 19.8 % (20.0-50.0); MEAN CORPUSCULAR HEMOGLOBIN 26.1 pg (28.0-32.0); MEAN CORPUSCULAR VOLUME 80.8 fL (80.0-94.0); MEAN PLATELET VOLUME 11.3 fl (7.4-10.4); MONOCYTES % 9.8 % (2.0-8.0); NEUTROPHILS % 67.3 % (40.0-76.0); PLATELET 150 x1000/uL (130-400); RED BLOOD CELL COUNT 3.19 mill/uL (4.7-6.1); RED CELL DISTRIBUTION WIDTH 15.9 % (11.6-14.6)
[2022-01-15] MEDS ORDERED: IOHEXOL-300 50 ML BOTTLE IV ONE (08:25)
[2022-01-15] MEDS ORDERED: FENTANYL CITRATE/PF 50MCG/ML 2ML VIAL IV ONE (08:45)
[2022-01-15] MEDS: FOLIC ACID/VITAMIN B COMP W-C TABLET PO SCH (10:14)
[2022-01-15] MEDS: CEFAZOLIN 1000MG PREMIX 50 ML IV SCH (10:14)
[2022-01-15] MEDS: CARVEDILOL 12.5MG TABLET PO SCH ×2 (10:14→20:28)
[2022-01-15] MEDS: PANTOPRAZOLE SODIUM 40 MG/VIAL IV SCH (10:14)
[2022-01-15] MEDS: RISPERIDONE 0.5MG TABLET PO SCH ×2 (10:15→20:27)
[2022-01-15] MEDS: LOSARTAN POTASSIUM 50 MG TABLET PO SCH ×2 (10:18→20:27)
[2022-01-15] MEDS: ACETAMINOPHEN 325MG TABLET PO PRN (16:17)
[2022-01-15] MEDS: ATORVASTATIN CALCIUM 40MG TABLET PO SCH (20:27)
[2022-01-15] MEDS ORDERED: HYDROCODONE/ACETAMINOPHEN 5/325MG TABLET PO PRN (23:00)
[2022-01-16] VITALS: BP 107/38
[2022-01-16 04:00] VITALS: BP 109/78
[2022-01-16 08:00] VITALS: BP 136/40
[2022-01-16] MEDS: PANTOPRAZOLE SODIUM 40 MG/VIAL IV SCH (09:15)
[2022-01-16] MEDS: CEFAZOLIN 1000MG PREMIX 50 ML IV SCH (09:15)
[2022-01-16] MEDS: CALCIUM ACETATE 667MG CAPSULE PO SCH ×2 (09:16→13:54)
[2022-01-16] MEDS: CARVEDILOL 12.5MG TABLET PO SCH (09:17)
[2022-01-16] MEDS: FOLIC ACID/VITAMIN B COMP W-C TABLET PO SCH (09:22)
[2022-01-16] MEDS: LOSARTAN POTASSIUM 50 MG TABLET PO SCH (09:22)
[2022-01-16 12:00] VITALS: BP 115/70
[2022-01-16] MEDS: RISPERIDONE 0.5MG TABLET PO SCH (13:55)
== END 2022-01-16 18:15 | DRG 280 ==
LOC: ER 12:12 → MICUSO 21:52 → EDBEDREQTM 22:23 → EDBEDREQSVC 22:23 → CVICU 01-02 04:02 → 8WST 01-05 05:35
PROVIDERS: ADMIT Internal Medicine; ATTEND Internal Medicine
PROC: 5A09457 Assistance with Respiratory Ventilation, 24-96 Consecutive Hours, Continuous Positive Airway Pressure (ICD-10-PCS; 2022-01-01)
PROC: 5A1D70Z Performance of Urinary Filtration, Intermittent, Less than 6 Hours Per Day (ICD-10-PCS; 2022-01-01)
PROC: 06HM33Z Insertion of Infusion Device into Right Femoral Vein, Percutaneous Approach (ICD-10-PCS; 2022-01-02)
PROC: B54BZZA Ultrasonography of Right Lower Extremity Veins, Guidance (ICD-10-PCS; 2022-01-02)
PROC: 02HV33Z Insertion of Infusion Device into Superior Vena Cava, Percutaneous Approach (ICD-10-PCS; 2022-01-02)
PROC: B5181ZA Fluoroscopy of Superior Vena Cava using Low Osmolar Contrast, Guidance (ICD-10-PCS; 2022-01-02)
PROC: B548ZZA Ultrasonography of Superior Vena Cava, Guidance (ICD-10-PCS; 2022-01-02)
PROC: 5A1D70Z Performance of Urinary Filtration, Intermittent, Less than 6 Hours Per Day (ICD-10-PCS; 2022-01-02)
PROC: 5A1D70Z Performance of Urinary Filtration, Intermittent, Less than 6 Hours Per Day (ICD-10-PCS; 2022-01-03)
PROC: 05PYX3Z Removal of Infusion Device from Upper Vein, External Approach (ICD-10-PCS; 2022-01-04)
PROC: 5A1D70Z Performance of Urinary Filtration, Intermittent, Less than 6 Hours Per Day (ICD-10-PCS; 2022-01-05)
PROC: 5A1D70Z Performance of Urinary Filtration, Intermittent, Less than 6 Hours Per Day (ICD-10-PCS; 2022-01-07)
PROC: 5A1D70Z Performance of Urinary Filtration, Intermittent, Less than 6 Hours Per Day (ICD-10-PCS; 2022-01-09)
PROC: 5A1D70Z Performance of Urinary Filtration, Intermittent, Less than 6 Hours Per Day (ICD-10-PCS; 2022-01-11)
PROC: 5A1D70Z Performance of Urinary Filtration, Intermittent, Less than 6 Hours Per Day (ICD-10-PCS; 2022-01-13)
PROC: 0JH63XZ Insertion of Tunneled Vascular Access Device into Chest Subcutaneous Tissue and Fascia, Percutaneous Approach (ICD-10-PCS; principal; 2022-01-15)
PROC: 02HV33Z Insertion of Infusion Device into Superior Vena Cava, Percutaneous Approach (ICD-10-PCS; 2022-01-15)
PROC: B5181ZA Fluoroscopy of Superior Vena Cava using Low Osmolar Contrast, Guidance (ICD-10-PCS; 2022-01-15)
PROC: B548ZZA Ultrasonography of Superior Vena Cava, Guidance (ICD-10-PCS; 2022-01-15)
PROC: 5A1D70Z Performance of Urinary Filtration, Intermittent, Less than 6 Hours Per Day (ICD-10-PCS; 2022-01-15)
DX: T80.211A Bloodstream infection due to central venous catheter, initial encounter (principal); A41.01 Sepsis due to Methicillin susceptible Staphylococcus aureus; I21.4 Non-ST elevation (NSTEMI) myocardial infarction; J96.00 Acute respiratory failure, unspecified whether with hypoxia or hypercapnia; N18.6 End stage renal disease; I50.23 Acute on chronic systolic (congestive) heart failure; I61.1 Nontraumatic intracerebral hemorrhage in hemisphere, cortical; J18.9 Pneumonia, unspecified organism; I62.00 Nontraumatic subdural hemorrhage, unspecified; G93.41 Metabolic encephalopathy; T82.514A Breakdown (mechanical) of infusion catheter, initial encounter; E87.1 Hypo-osmolality and hyponatremia; I13.2 Hypertensive heart and chronic kidney disease with heart failure and with stage 5 chronic kidney disease, or end stage renal disease; I48.19 Other persistent atrial fibrillation; I42.0 Dilated cardiomyopathy; Z68.42 Body mass index [BMI] 45.0-49.9, adult; E11.22 Type 2 diabetes mellitus with diabetic chronic kidney disease; E66.01 Morbid (severe) obesity due to excess calories; D69.6 Thrombocytopenia, unspecified; D64.9 Anemia, unspecified; F12.90 Cannabis use, unspecified, uncomplicated; G31.9 Degenerative disease of nervous system, unspecified; I25.10 Atherosclerotic heart disease of native coronary artery without angina pectoris; I34.0 Nonrheumatic mitral (valve) insufficiency; E87.5 Hyperkalemia; F29 Unspecified psychosis not due to a substance or known physiological condition; Z20.822 Contact with and (suspected) exposure to COVID-19; Y84.8 Other medical procedures as the cause of abnormal reaction of the patient, or of later complication, without mention of misadventure at the time of the procedure; Z91.15 Patient's noncompliance with renal dialysis; Z95.2 Presence of prosthetic heart valve; Z99.2 Dependence on renal dialysis; Y92.89 Other specified places as the place of occurrence of the external cause
CPT/HCPCS: 36415; 36589; 36600; 71045; 72128; 72131; 76937; 77001; 80048; 80053; 80061; 80076; 80202; 80305; 81003; 82140; 82375; 82550; 82553; 82805; 82962; 83036; 83735; 83880; 84100; 84145; 84439; 84443; 84484; 85025; 86705; 86709; 86803; 87070; 87077; 87186; 87340; 87426; 93005; 93306; 93308; 93970; 94660; 97116; 97162; 97166; 97168; 97530; 99152; 99153; 99291; C1725; C1750; C1752; C1769; C1887; C9113; J0690; J0692; J0696; J1642; J1644; J1815; J1940; J2060; J2270; J2405; J2543; J2997; J3010; J3370; J3490; J7040; J7060; Q0161; Q9967; A4315; G0500